=== PATIENT | male | born 1945 | race Caucasian/White ===

== ENCOUNTER → 2016-09-05 | Outpatient (CLI) | payer OTHER ==
[~2016-09-05] MED LIST: ATV/1 PO; LUTE15CA PO; MULT-1027
[2016-09-05 14:38] LABS: BASO % 0.6 %; BASO ABS # 0.04 K/uL (0-0.2); COMPLETE YES; EOS % 3.5 %; HEMATOCRIT 44.1 % (42-52); IG% 0.3 %; LYMPH ABS # 1.28 K/uL (1.2-3.4); MEAN CELL VOLUME 91.7 fL (80-100); MEAN CORPUSCULAR HEMOGLOBIN 31.4 pg (25-34); MEAN CORPUSCULAR HGB CONC 34.2 g/dl (32-36); MEAN PLATELET VOLUME 11.2 fL (7.4-10.4); MONO % 7.7 %; NEUT % 69.9 %; PLATELET COUNT 232 K/uL (130-400); RED BLOOD COUNT 4.81 M/uL (4.7-6.1); WHITE BLOOD COUNT 7.12 K/uL (4.8-10.8)
[2016-09-05 14:39] LABS: ALB/GLOB RATIO 1.2 (0.9-2); ALKALINE PHOSPHATASE 37 U/L (45-117); ALT/SGPT 33 U/L (12-78); AST/SGOT 17 U/L (15-37); BLOOD UREA NITROGEN 20 mg/dl (7-18); BUN/CREATININE RATIO 17.8 (10-20); CALCIUM 8.9 mg/dl (8.5-10.1); CARBON DIOXIDE 32 mmol/L (21-32); CHLORIDE 105 mmol/L (98-107); GLUCOSE 74 mg/dl (70-99); POTASSIUM 4.1 mmol/L (3.5-5.1); SODIUM 142 mmol/L (136-145)
== END | disposition home or self-care (01) ==
LOC: C.LABMFLN 14:42
PROVIDERS: ATTEND Internal Medicine Hematology & Oncology
DX: C34.12 Malignant neoplasm of upper lobe, left bronchus or lung (principal)

== ENCOUNTER → 2016-10-18 | Outpatient (CLI) | payer OTHER ==
[2016-10-17 17:52] LABS: BASO % 0.5 %; BASO ABS # 0.04 K/uL (0-0.2); COMPLETE YES; EOS % 2.2 %; HEMATOCRIT 42.8 % (42-52); IG% 0.3 %; LYMPH % 14.7 %; LYMPH ABS # 1.12 K/uL (1.2-3.4); MEAN CELL VOLUME 91.3 fL (80-100); MEAN CORPUSCULAR HEMOGLOBIN 30.7 pg (25-34); MEAN CORPUSCULAR HGB CONC 33.6 g/dl (32-36); MEAN PLATELET VOLUME 10.8 fL (7.4-10.4); MONO % 6.8 %; NEUT % 75.5 %; PLATELET COUNT 240 K/uL (130-400); RED BLOOD COUNT 4.69 M/uL (4.7-6.1); WHITE BLOOD COUNT 7.64 K/uL (4.8-10.8)
[2016-10-17 19:36] LABS: BLOOD UREA NITROGEN 18 mg/dl (7-18); BUN/CREATININE RATIO 16.2 (10-20); CARBON DIOXIDE 29 mmol/L (21-32); CHLORIDE 104 mmol/L (98-107); GLUCOSE 96 mg/dl (70-99); POTASSIUM 4.1 mmol/L (3.5-5.1); SODIUM 141 mmol/L (136-145)
[2016-10-17 19:45] LABS: ALB/GLOB RATIO 1.1 (0.9-2); ALKALINE PHOSPHATASE 30 U/L (45-117); ALT/SGPT 37 U/L (12-78); AST/SGOT 22 U/L (15-37)
--- NOTE | 2016-10-18 11:57 | DIAGNOSTIC IMAGING REPORT ---
ABDOMEN AND PELVIS CT WITH IV AND ORAL CONTRAST CT DOSE: 477.17 mGy.cm HISTORY: Lung carcinoma LUNG CA TECHNIQUE: Multiaxial CT images of the abdomen and pelvis were performed following the use of intravenous and oral contrast. COMPARISON STUDY: PET/CT 07/04/2016 FINDINGS: Lung bases are clear. Liver is remarkable for a 1.8 cm cyst peripheral right hepatic lobe. Gallbladder is mildly contracted and 1.8 cm hyperdense left renal exophytic cyst. Fullness of the renal collecting systems bilaterally. There is no evidence for ureteral distention. Possibility of moderate UPJ defect on the right and to lesser extent left must be considered. Bowel pattern is nonobstructive. Prostate is enlarged. Bladder is midline. No significant abdominal pelvic or inguinal adenopathy. Sclerotic changes left T12 vertebral body and left sacrum and allison region stable from the prior exam. No evidence for compression deformity. IMPRESSION: 1. Stable limited bony metastatic change. 2. Small left renal hyperdense cyst. 3. Bilateral hydronephrosis combine with peripelvic cysts raising the possibility of developing UPJ defect. 4. Moderate prostatic enlargement Electronically signed by: Matt August M.D. 10/18/2016 11:55 AM Dictated Date/Time: 10/18/2016 11:49 AM
--- NOTE | 2016-10-18 12:34 | DIAGNOSTIC IMAGING REPORT ---
CT OF THE CHEST WITH IV CONTRAST CLINICAL HISTORY: Lung cancer. COMPARISON STUDY: Chest CT June 20, 2016 and PET/CT July 04, 2016. TECHNIQUE: Following IV administration of 90 mL of Optiray-320, helical axial images of the chest were obtained. Images were viewed in the axial, sagittal and coronal planes. IV contrast was administered without complication. FINDINGS: No enlarged axillary, mediastinal or hilar lymph nodes are present. The size the heart is normal. The previously described left upper lobe. A mediastinal mass has significantly decreased in size since prior exam of June 20, 2016. This mass now measures 5 x 1.9 cm. It previously measured 8.6 x 3.9 cm. The previously described 7 mm left lower lobe nodule is no longer visualized indicating a treatment response. A few small subpleural nodules are unchanged. No new nodules are present. The central airways are patent. There has been interval increase in sclerosis of the previously described lesion within the right aspect of the T12 vertebral body with this lesion measures approximately 2.5 cm. No new lesions are identified within visual skeletal structures. The abdomen and pelvis will be reported separately. A 1.7 cm hyperdense lesion arising from the upper pole of the left kidney is unchanged. This is indeterminate. IMPRESSION: 1. Significant interval decrease in size of the left upper lobe paramediastinal mass indicating a partial treatment response. 2. Interval resolution of the 7 mm left lower lobe nodule indicating a treatment response. 3. No thoracic lymphadenopathy. 4. Interval development of sclerosis within the T12 vertebral body metastasis which could reflect a treatment response. 5. No change in the indeterminate 1.7 cm left renal lesion which could reflect a solid renal lesion or hyperdense cyst. Electronically signed by: Dre Little M.D. 10/18/2016 12:32 PM Dictated Date/Time: 10/18/2016 12:18 PM
== END | disposition home or self-care (01) ==
LOC: C.CTS 10:27
PROVIDERS: ATTEND Internal Medicine Hematology & Oncology
DX: C34.12 Malignant neoplasm of upper lobe, left bronchus or lung (principal)

== ENCOUNTER → 2016-11-28 | Outpatient (CLI) | payer OTHER ==
[2016-11-28 17:53] LABS: ALT/SGPT 37 U/L (12-78); AST/SGOT 23 U/L (15-37); BLOOD UREA NITROGEN 19 mg/dl (7-18); BUN/CREATININE RATIO 17.3 (10-20); CARBON DIOXIDE 31 mmol/L (21-32); CHLORIDE 105 mmol/L (98-107); GLUCOSE 103 mg/dl (70-99); POTASSIUM 4.3 mmol/L (3.5-5.1); SODIUM 142 mmol/L (136-145)
[2016-11-28 17:56] LABS: ALB/GLOB RATIO 1.1 (0.9-2); ALKALINE PHOSPHATASE 32 U/L (45-117)
[2016-11-28 18:02] LABS: BASO % 0.4 %; BASO ABS # 0.04 K/uL (0-0.2); COMPLETE YES; EOS % 1.6 %; HEMATOCRIT 43.2 % (42-52); IG% 0.2 %; LYMPH % 14.9 %; MEAN CELL VOLUME 93.5 fL (80-100); MEAN CORPUSCULAR HEMOGLOBIN 31.6 pg (25-34); MEAN CORPUSCULAR HGB CONC 33.8 g/dl (32-36); MEAN PLATELET VOLUME 10.9 fL (7.4-10.4); NEUT % 75.9 %; PLATELET COUNT 237 K/uL (130-400); RED BLOOD COUNT 4.62 M/uL (4.7-6.1); WHITE BLOOD COUNT 9.42 K/uL (4.8-10.8)
== END | disposition home or self-care (01) ==
LOC: C.LABMFLN 12:14
PROVIDERS: ATTEND Internal Medicine Hematology & Oncology
DX: C34.12 Malignant neoplasm of upper lobe, left bronchus or lung (principal)

== ENCOUNTER → 2017-01-10 | Outpatient (CLI) | payer OTHER ==
[2017-01-10 12:49] LABS: BASO % 0.5 %; BASO ABS # 0.04 K/uL (0-0.2); COMPLETE YES; EOS % 3.6 %; HEMATOCRIT 45.4 % (42-52); IG% 0.3 %; LYMPH % 15.7 %; LYMPH ABS # 1.21 K/uL (1.2-3.4); MEAN CORPUSCULAR HEMOGLOBIN 31.9 pg (25-34); MEAN CORPUSCULAR HGB CONC 33.3 g/dl (32-36); MEAN PLATELET VOLUME 11.1 fL (7.4-10.4); MONO % 7.4 %; NEUT % 72.5 %; PLATELET COUNT 235 K/uL (130-400); RED BLOOD COUNT 4.73 M/uL (4.7-6.1); WHITE BLOOD COUNT 7.73 K/uL (4.8-10.8)
[2017-01-10 13:52] LABS: ALT/SGPT 35 U/L (12-78); BLOOD UREA NITROGEN 17 mg/dl (7-18); CALCIUM 9.1 mg/dl (8.5-10.1); CARBON DIOXIDE 29 mmol/L (21-32); CHLORIDE 106 mmol/L (98-107); GLUCOSE 101 mg/dl (70-99); POTASSIUM 4.2 mmol/L (3.5-5.1); SODIUM 142 mmol/L (136-145)
[2017-01-10 13:55] LABS: ALB/GLOB RATIO 1.1 (0.9-2); ALKALINE PHOSPHATASE 30 U/L (45-117); AST/SGOT 25 U/L (15-37)
== END ==
LOC: C.LABMFLN 09:40
PROVIDERS: ATTEND Internal Medicine Hematology & Oncology
DX: C34.12 Malignant neoplasm of upper lobe, left bronchus or lung (principal); E11.9 Type 2 diabetes mellitus without complications; E78.00 Pure hypercholesterolemia, unspecified; I10 Essential (primary) hypertension

== ENCOUNTER → 2017-01-28 | Outpatient (CLI) | payer OTHER ==
[~2017-01-28] MED LIST changes: +OPTIRAY 320 IV PRN
--- NOTE | 2017-01-28 14:20 | DIAGNOSTIC IMAGING REPORT ---
CT OF THE CHEST WITH IV CONTRAST CLINICAL HISTORY: LUNG CA COMPARISON STUDY: 10/18/2016 TECHNIQUE: Following the IV administration of 93 mL of Optiray-320, CT of the thorax was performed from the thoracic inlet to the lung bases. Images are reviewed in the axial, sagittal, and coronal planes. IV contrast was administered without complication. CT DOSE: FINDINGS: Thyroid: Imaged portions of the thyroid gland are normal in appearance. Thoracic aorta: The thoracic aorta is normal in course and caliber, noting standard 3-vessel arch anatomy. No aneurysm or dissection is seen. Pulmonary vasculature: The pulmonary trunk is normal in caliber. There are no central filling defects identified to suggest pulmonary embolus. Note that this examination was not protocoled for the evaluation of pulmonary emboli. HEART: The heart is normal in size and configuration, without pericardial effusion. Lungs and pleural spaces: No pleural effusions are visualized. There is a left upper lobe/mediastinal mass measuring 4.3 x 1.9 cm. This remains essentially unchanged the preceding study. No new or enlarging pulmonary nodules are visualized. There is a stable 4 mm subpleural left lower lobe pulmonary nodule Mediastinum: There is no pathologic mediastinal lymphadenopathy Sherri: There is no pathologic hilar adenopathy Axilla: Clear. Upper abdomen: There is a stable 22 mm right lobe hepatic cyst. There is a stable 19 mm hypodensity arising from the upper pole the left kidney. This exceeds water attenuation and is therefore indeterminate. Skeletal structures: There is an ill-defined area of sclerosis involving the T12 vertebra on the right. This measures approximately 2 cm. IMPRESSION: 1. Stable to slightly smaller left upper lobe paramediastinal mass measuring approximately 43 x 19 mm 2. No new or enlarging pulmonary nodules. 3. No evidence of pathologic adenopathy 4. Stable 2 cm T12 sclerotic lesion 5. Stable 19 mm upper pole left renal lesion Electronically signed by: Sharad Pemberton M.D. 01/28/2017 2:19 PM Dictated Date/Time: 01/28/2017 2:11 PM
--- NOTE | 2017-01-28 14:35 | DIAGNOSTIC IMAGING REPORT ---
CT SCAN OF THE ABDOMEN AND PELVIS WITH IV CONTRAST CLINICAL HISTORY: Lung cancer. COMPARISON STUDY: Abdominal CT dated 10/18/2016. PET CT dated 07/04/2016. TECHNIQUE: Following the IV administration of 93 cc of Optiray 320, CT scan of the abdomen and pelvis is performed from the lung bases to the proximal femora. Images are reviewed in the axial, sagittal, and coronal planes. IV contrast was administered without complication. Automated dose control exposure was utilized. CT DOSE: 454.25 mGy.cm FINDINGS: Lung bases: The heart is normal in size and without pericardial effusion. Emphysema is noted at the lung bases. A fat-containing Bochdalek hernia is present on the right. Scarring is noted at the anterior right lung base. There is no airspace consolidation typical for pneumonia or pleural effusion. Liver: The contrast-enhanced liver is normal in size, contour, and attenuation. There is no intrahepatic biliary ductal dilatation. The hepatic veins and portal veins are patent. A 2.3 cm cyst is noted in the right lobe. Gallbladder: Unremarkable. Spleen: Normal in size and attenuation. Pancreas: Unremarkable. Adrenal glands: Unremarkable. Kidneys: The contrast enhanced kidneys demonstrate mild cortical atrophy. There is mild to moderate bilateral hydroureteronephrosis, similar appearance to 10/18/2016 examination. The kidneys enhance symmetrically. There is an indeterminant 1.9 cm exophytic lesion arising from the upper pole the left kidney as seen on image #84. Subcentimeter cortical hypodensities likely represent cysts but are too small for definitive catheterization. A nonobstructing calculus is seen in the left lower pole. Abdominal vasculature: The abdominal aorta is normal in course and caliber noting advanced atherosclerotic calcification. Bowel: The small bowel and colon are normal in course and caliber. There is moderate colonic diverticulosis without CT evidence of acute diverticulitis. Moderate colonic fecal retention is observed. The appendix is well-visualized and normal. Peritoneum: There is no intraperitoneal free air or abdominal ascites. Lymphadenopathy: None. Pelvic viscera: The prostate gland is markedly enlarged and heterogeneous measuring over 5.5 cm in transverse diameter. There is median lobe hypertrophy. The bladder wall is thickened and trabeculated suggesting the sequelae of chronic outlet obstruction. Skeletal structures: The skeletal structures are osteopenic. Sclerotic lesions in the bodies of T12, L3, L5, and the left sacral ala are similar to previous. There are healed bilateral rib fractures. IMPRESSION: 1. There is no evidence of progressive metastatic disease in the abdomen or pelvis. 2. Sclerotic osseous metastatic lesions as above are similar to prior studies. 3. The prostate gland is markedly enlarged and heterogeneous and there is evidence of chronic bladder outlet obstruction. Correlation with serum PSA levels is recommended. 4. Mild to moderate bilateral hydroureteronephrosis is similar to previous, possibly related to the markedly enlarged prostate gland. 5. Nonobstructing left calculus. 6. There is an indeterminant 1.9 cm exophytic lesion arising from the upper pole of the left kidney. This is similar to prior studies, was not FDG avid on the 07/04/2016 PET examination, and likely represents a complex cyst. 7. Emphysema. 8. Moderate colonic diverticulosis without CT evidence of acute diverticulitis. 9. Additional findings as above. Electronically signed by: Jose Martines M.D. 01/28/2017 2:34 PM Dictated Date/Time: 01/28/2017 2:21 PM
== END | disposition home or self-care (01) ==
LOC: C.CTS 13:13
PROVIDERS: ATTEND Internal Medicine Hematology & Oncology
DX: C34.12 Malignant neoplasm of upper lobe, left bronchus or lung (principal)

== ENCOUNTER → 2017-02-13 | Outpatient (CLI) | payer OTHER ==
[~2017-02-13] MED LIST changes: -OPTIRAY 320 IV PRN
[2017-02-13 13:44] LABS: % FREE PSA 12.8 %; FREE PSA 0.76 ng/ml; PROSTATE SPECIFIC ANTIGEN 5.96 ng/ml (0.000-4.000)
== END | disposition home or self-care (01) ==
LOC: C.LABMFLN 08:07
PROVIDERS: ATTEND Family Medicine
DX: R97.20 Elevated prostate specific antigen [PSA] (principal)

== ENCOUNTER → 2017-04-19 | Outpatient (CLI) | payer OTHER ==
[~2017-04-19] MED LIST changes: +OPTIRAY 320 IV PRN
--- NOTE | 2017-04-19 16:19 | DIAGNOSTIC IMAGING REPORT ---
ABD/PELVIS IV AND ORAL CONT CLINICAL HISTORY: 72 years-old Male presenting with LUNG CA. TECHNIQUE: Multidetector CT of the abdomen and pelvis was performed after the administration of oral and intravenous contrast. IV contrast: 118 mL of Optiray 320. A dose lowering technique was used consistent with the principles of ALARA (as low as reasonably achievable). COMPARISON: 01/28/2017. CT DOSE (mGy.cm): The estimated cumulative dose is 464.21. FINDINGS: Assistant Project Engineer topogram: Unremarkable. Lung bases: Normal reticulation in the right middle lobe. Normal heart size. No pericardial or pleural effusion. Fat-containing right Bochdalek hernia noted. Liver: Normal morphology. Well-defined nonenhancing hypodense lesions again noted in the gallbladder fossa and right hepatic lobe consistent with hepatic cysts or hamartomas. No suspicious lesion. Agent hepatic vasculature. Biliary: No intrahepatic or extrahepatic biliary ductal dilatation. Normal gallbladder. Pancreas: Mild prominence of the pancreatic duct without evidence of a suspicious mass. A duodenal diverticula may be present in the pancreatic head region. Additionally, small subcentimeter cystic lesion in the pancreatic head may be present, unchanged from prior exam, possibly small knee cyst cyst or side duct intravascular mucinous neoplasm. Spleen: Normal. Adrenal glands: Normal. Kidneys and ureters: Multiple hypodensities in the kidneys bilaterally, likely simple cysts. Nonobstructing 3 mm calculus at the lower pole of the left kidney. Mild bilateral pelvocaliectasis unchanged from prior exam. The ureters are nondilated beyond the ureteropelvic junctions. Bladder: Moderate diffuse bladder wall thickening, increased from prior. Pelvic organs: Prostate enlargement likely secondary to benign prostatic hyperplasia. Bowel: Limited sigmoid diverticulosis. Normal appendix. No bowel obstruction. Small duodenal diverticulum along the descending portion suspected. Peritoneal cavity: No free fluid or intraperitoneal gas. Vasculature: Atherosclerosis of the normal caliber abdominal aorta. IVC patent. Lymph nodes: No enlarged lymph nodes in the abdomen or pelvis. Abdominal wall: Normal. Musculoskeletal: Degenerative changes of the spine. Degenerative changes of the sacroiliac joints. Radiolucent lesion in the T12 vertebral body was previously sclerotic (series 6 image 73), now measuring 1.6 cm. Additional mixed sclerotic lytic lesions in the lumbar vertebra at L3, L5 and in the left sacral ala better appreciated on PET/CT from 07/04/2016. IMPRESSION: 1. Remaining demonstration of osseous metastatic lesions with interval evolution of the T12 lesion, which is now well-defined and radiolucent. This is indeterminate for progression. 2. Otherwise no evidence of progression of metastatic disease in the abdomen or pelvis. 3. Increase in bladder wall thickening likely indicating chronic outlet obstruction secondary to prostatomegaly. Electronically signed by: Jeremy Orourke M.D. 04/19/2017 4:18 PM Dictated Date/Time: 04/19/2017 4:08 PM
--- NOTE | 2017-04-19 16:22 | DIAGNOSTIC IMAGING REPORT ---
CHEST CT WITH CONTRAST CT DOSE: 464.21 mGy.cm HISTORY: LUNG CA follow-up study. TECHNIQUE: Multiaxial CT images of the chest were performed following the intravenous administration of 118 mL Optiray 320 intravenous contrast. A dose lowering technique was utilized adhering to the principles of ALARA. COMPARISON: Chest CT 01/28/2017. FINDINGS: There is no focal thyroid nodule. No pathologic adenopathy throughout the chest identified. Heart is normal in size without pericardial effusion. Coronary arterial calcifications are noted. There is moderate atherosclerotic plaquing of the thoracic aorta. No evidence of pulmonary thromboembolic disease. The previously noted left upper lobe peroneal mediastinal mass abutting the left mediastinal margin, 4.0 x 1.3 x 3.6 cm, previously 4.3 x 1.6 x 3.7 cm. There is loss of the mediastinal fat plane along the superior margin of this mass which appears unchanged. Mild spiculated margins are redemonstrated. There is mild to moderate narrowing of the left main mid pulmonary artery just inferior to the spiculated mass, likely secondary to scarring/retraction. This also is unchanged. There is no pneumothorax or pleural effusion. No new suspicious pulmonary nodules or masses are identified. 4 mm pleural-based nodule of the lateral basal segment left lower lobe is incidentally noted on image 184. Linear pleural-based subsegmental opacities of the lung bases suggest scarring or atelectasis. The central airways are patent. There are a few low attenuating lesions in the liver seen, largest of which is within the right hepatic lobe, 2.2 x 2.0 cm, unchanged and nonspecific suggesting hepatic cyst. Exophytic cyst of the superior pole left kidney is seen, 2.4 cm. Soft tissues are unremarkable. Calcific tendinosis involves the right shoulder. Lucent lesion of the T12 vertebral body is seen, 1.6 x 1.3 x 1.2 cm previously, this was a focal area of sclerosis on study dated 01/28/2017. No associated pathologic fracture. No additional suspicious lytic or blastic bony lesions identified. IMPRESSION: 1. Slightly decreased size of the spiculated pleural-based mass of the left upper lobe abutting the left mediastinal margin, now measuring up to 4.0 cm. 2. 4 mm indeterminate noncalcified pleural-based nodule of the left lower lobe is incidentally noted, unchanged from comparison. No new additional masses or suspicious pulmonary nodules are identified. 3. No pathologic adenopathy. 4. Developing lucency involves the previously noted sclerotic lesion of the T12 vertebral body. No associated pathologic fracture or new suspicious bony lesions identified. Electronically signed by: Meño Pepe M.D. 04/19/2017 4:20 PM Dictated Date/Time: 04/19/2017 4:08 PM
== END | disposition home or self-care (01) ==
LOC: C.CTS 13:26
PROVIDERS: ATTEND Internal Medicine Hematology & Oncology
DX: C34.12 Malignant neoplasm of upper lobe, left bronchus or lung (principal); N40.1 Benign prostatic hyperplasia with lower urinary tract symptoms; N32.89 Other specified disorders of bladder

== ENCOUNTER → 2017-04-19 | Outpatient (CLI) | payer OTHER ==
[~2017-04-19] MED LIST changes: -OPTIRAY 320 IV PRN
[2017-04-19 14:06] LABS: ALT/SGPT 37 U/L (12-78); BLOOD UREA NITROGEN 18 mg/dl (7-18); BUN/CREATININE RATIO 17.8 (10-20); CALCIUM 9.5 mg/dl (8.5-10.1); CARBON DIOXIDE 30 mmol/L (21-32); CHLORIDE 104 mmol/L (98-107); GLUCOSE 84 mg/dl (70-99); POTASSIUM 4.1 mmol/L (3.5-5.1); SODIUM 140 mmol/L (136-145)
[2017-04-19 14:09] LABS: ALKALINE PHOSPHATASE 37 U/L (45-117); AST/SGOT 24 U/L (15-37)
[2017-04-19 14:25] LABS: BASO % 0.6 %; BASO ABS # 0.05 K/uL (0-0.2); COMPLETE YES; EOS % 2.3 %; HEMATOCRIT 47.8 % (42-52); IG% 0.4 %; LYMPH % 14.6 %; LYMPH ABS # 1.21 K/uL (1.2-3.4); MEAN CELL VOLUME 95.4 fL (80-100); MEAN CORPUSCULAR HEMOGLOBIN 32.5 pg (25-34); MEAN CORPUSCULAR HGB CONC 34.1 g/dl (32-36); MEAN PLATELET VOLUME 11.2 fL (7.4-10.4); MONO % 8.8 %; NEUT % 73.3 %; PLATELET COUNT 246 K/uL (130-400); RED BLOOD COUNT 5.01 M/uL (4.7-6.1)
== END | disposition home or self-care (01) ==
LOC: C.LABMFLN 11:59
PROVIDERS: ATTEND Internal Medicine Hematology & Oncology
DX: C34.12 Malignant neoplasm of upper lobe, left bronchus or lung (principal)

== ENCOUNTER → 2017-07-10 | Outpatient (CLI) | payer OTHER ==
[~2017-07-10] MED LIST changes: +OPTIRAY 320 IV PRN
[2017-07-10 14:10] LABS: ISTAT HEMOGLOBIN 15.6 g/dl (14.0-18.0); ISTAT IONIZED CALCIUM 1.12 mmol/l (1.12-1.32)
--- NOTE | 2017-07-10 14:21 | DIAGNOSTIC IMAGING REPORT ---
ABDOMEN AND PELVIS CT WITH IV AND ORAL CONTRAST CT DOSE: HISTORY: PRIMARY MALIGNANT NEOPLASM OF LEFT UPPER LOBE OF LUNG TECHNIQUE: Multiaxial CT images of the abdomen and pelvis were performed following the use of intravenous and oral contrast. A dose lowering technique was utilized adhering to the principles of ALARA. COMPARISON STUDY: Abdomen and pelvis CT 04/19/2017. FINDINGS: Increase in size within the predominantly lytic lesion within the T12 vertebral body which measures 2.5 x 2.1 cm. This demonstrates breakthrough along the posterior cortex of the vertebral body. No definite epidural soft tissue mass identified at this time. Additional sclerotic lesions at L3, and L5 remain unchanged. No change in the predominantly lytic lesion within the left sacral wing. No new osseous lesions identified. Prostatomegaly and mild bladder wall thickening remains unchanged. Colonic diverticulosis. Normal appendix. No bowel wall thickening or obstruction. No retroperitoneal lymphadenopathy. The spleen and adrenal glands are unremarkable. Stable tiny hypodense lesions within the pancreatic head which are likely cystic. Normal gallbladder. Stable hepatic cysts. Stable bilateral renal hypodense lesions which also likely represent cysts. Stable punctate calcification within the lower pole the left kidney. Stable mild fullness within the bilateral renal collecting systems without faiza hydronephrosis. IMPRESSION: 1. Increase in size in the predominantly lytic lesion within the T12 vertebral body which now demonstrates cortical breakthrough through the posterior cortex of the vertebral body. No definite epidural soft tissue mass identified this time. 2. Additional mixed lytic and sclerotic lesions within the lumbar spine and sacrum remain unchanged. 3. No new areas of metastatic disease identified. Electronically signed by: Davonte Troy M.D. 07/10/2017 2:20 PM Dictated Date/Time: 07/10/2017 2:11 PM
--- NOTE | 2017-07-10 14:24 | DIAGNOSTIC IMAGING REPORT ---
(CHEST) THORAX WITH CLINICAL HISTORY: 72 years-old Male presenting with PRIMARY MALIGNANT NEOPLASM OF LEFT UPPER LOBE OF LUNG. TECHNIQUE: Multidetector CT imaging of the chest was performed after the administration of intravenous contrast. IV contrast: 93 mL of Optiray 320. A dose lowering technique was used consistent with the principles of ALARA (as low as reasonably achievable). COMPARISON: 04/19/2017. CT DOSE (mGy.cm): The estimated cumulative dose is 550.21 mGycm. FINDINGS: Infusion Nurse topogram: Unremarkable. On soft tissue windows, normal thyroid and thoracic inlet. No axillary, supraclavicular, hilar, or mediastinal lymphadenopathy. Atherosclerosis of the aorta. Aortic valve and coronary artery calcification. Normal heart size. No pericardial or pleural effusion. Well-defined hypodensity in the right hepatic lobe, partially visualized. Please see separately dictated CT of the abdomen and pelvis for further details. Exophytic cyst arising from the left kidney. On lung windows, no significant change in the spiculated pleural-based mass in the medial aspect of the left upper lobe, which now measures 4.2 x 1.4 cm, previously 4.1 x 1.2 cm when remeasured at a comparable level. Minimal associated nodularity in the mediastinal fat the level of the aortopulmonary window is unchanged from prior (series 4 image 109). Stable subpleural solid 4 mm nodule in the left lower lobe (series 4 image 179). Additional punctate subpleural nodule in the left lower lobe (series 4 image 147), unchanged. Subpleural solid 6 mm nodule in the posterior basal right lower lobe (series 4 image 182), unchanged. No new pulmonary nodule. Minimal dependent opacities likely atelectasis. Airways patent. On bone windows, degenerative changes of the spine. Lucent lesion in the T12 vertebral body has progressed since the prior exam (series 4 image 265). Irregularity of the lateral left ribs suggest old nondisplaced rib fractures. No new destructive osseous lesion is apparent. IMPRESSION: 1. Stable appearance of the spiculated pleural-based mass in the left upper lobe. 2. Stable bilateral pulmonary nodules. No new nodule. 3. No lymphadenopathy. 4. Apparent progression of the lucent lesion in the T12 vertebral body. This is indeterminate but raises concern for site of osseous metastasis. Electronically signed by: Jeremy Orourke M.D. 07/10/2017 2:23 PM Dictated Date/Time: 07/10/2017 2:13 PM
== END | disposition home or self-care (01) ==
LOC: C.CTS 12:14
PROVIDERS: ATTEND Internal Medicine Hematology & Oncology
DX: C34.12 Malignant neoplasm of upper lobe, left bronchus or lung (principal); R91.8 Other nonspecific abnormal finding of lung field

== ENCOUNTER → 2017-07-10 | Outpatient (CLI) | payer OTHER ==
[~2017-07-10] MED LIST changes: -OPTIRAY 320 IV PRN
[2017-07-10 12:40] LABS: BASO % 0.5 %; BASO ABS # 0.05 K/uL (0-0.2); COMPLETE YES; EOS % 2.1 %; HEMATOCRIT 45.1 % (42-52); IG% 0.2 %; LYMPH % 13.4 %; LYMPH ABS # 1.23 K/uL (1.2-3.4); MEAN CELL VOLUME 96.6 fL (80-100); MEAN CORPUSCULAR HEMOGLOBIN 32.5 pg (25-34); MEAN CORPUSCULAR HGB CONC 33.7 g/dl (32-36); MEAN PLATELET VOLUME 11.1 fL (7.4-10.4); MONO % 8.4 %; NEUT % 75.4 %; PLATELET COUNT 217 K/uL (130-400); RED BLOOD COUNT 4.67 M/uL (4.7-6.1); WHITE BLOOD COUNT 9.16 K/uL (4.8-10.8)
[2017-07-10 18:31] LABS: ALT/SGPT 32 U/L (12-78); BLOOD UREA NITROGEN 16 mg/dl (7-18); BUN/CREATININE RATIO 15.3 (10-20); CALCIUM 9.1 mg/dl (8.5-10.1); CARBON DIOXIDE 29 mmol/L (21-32); CHLORIDE 105 mmol/L (98-107); CREATININE 1.03 mg/dl (0.60-1.40); GLUCOSE 80 mg/dl (70-99); SODIUM 141 mmol/L (136-145)
[2017-07-10 18:34] LABS: ALB/GLOB RATIO 1.1 (0.9-2); ALKALINE PHOSPHATASE 41 U/L (45-117); AST/SGOT 23 U/L (15-37)
== END | disposition home or self-care (01) ==
LOC: C.LABMFLN 10:57
PROVIDERS: ATTEND Internal Medicine Hematology & Oncology
DX: C34.12 Malignant neoplasm of upper lobe, left bronchus or lung (principal)

== ENCOUNTER → 2017-10-22 | Outpatient (CLI) | payer OTHER ==
[2017-10-22 12:43] LABS: BASO % 0.6 %; BASO ABS # 0.05 K/uL (0-0.2); EOS % 2.6 %; EOS ABS # 0.22 K/uL (0-0.5); HEMATOCRIT 46.2 % (42-52); HEMOGLOBIN 16.1 g/dL (14.0-18.0); IG# 0.02 K/uL (0.00-0.02); LYMPH % 14.9 %; LYMPH ABS # 1.24 K/uL (1.2-3.4); MEAN CELL VOLUME 94.9 fL (80-100); MEAN CORPUSCULAR HEMOGLOBIN 33.1 pg (25-34); MEAN CORPUSCULAR HGB CONC 34.8 g/dl (32-36); MONO % 7.8 %; MONO ABS # 0.65 K/uL (0.11-0.59); NEUT % 73.9 %; NEUT ABS # 6.15 K/uL (1.4-6.5); PLATELET COUNT 219 K/uL (130-400); RED CELL DISTRIBUTION WIDTH CV 13.1 % (11.5-14.5); RED CELL DISTRIBUTION WIDTH SD 45.2 fL (36.4-46.3); WHITE BLOOD COUNT 8.33 K/uL (4.8-10.8)
[2017-10-22 13:27] LABS: ALBUMIN 4.1 gm/dl (3.4-5.0); ALKALINE PHOSPHATASE 43 U/L (45-117); ALT/SGPT 42 U/L (12-78); AST/SGOT 25 U/L (15-37); BLOOD UREA NITROGEN 19 mg/dl (7-18); CALCIUM 9.2 mg/dl (8.5-10.1); CARBON DIOXIDE 29 mmol/L (21-32); CREATININE 1.27 mg/dl (0.60-1.40); GLUCOSE 79 mg/dl (70-99); POTASSIUM 3.9 mmol/L (3.5-5.1); SODIUM 139 mmol/L (136-145); TOTAL PROTEIN 7.9 gm/dl (6.4-8.2)
== END | disposition home or self-care (01) ==
LOC: C.LABMFLN 10:41
PROVIDERS: ATTEND Internal Medicine Hematology & Oncology
DX: C34.12 Malignant neoplasm of upper lobe, left bronchus or lung (principal); R97.20 Elevated prostate specific antigen [PSA]

== ENCOUNTER → 2017-10-22 | Outpatient (CLI) | payer OTHER ==
[~2017-10-22] MED LIST changes: +OPTIRAY 320 IV PRN
--- NOTE | 2017-10-22 14:32 | DIAGNOSTIC IMAGING REPORT ---
(CHEST) THORAX WITH CLINICAL HISTORY: 72 years-old Male presenting with C34.21 lung cancer, 3 month follow-up. TECHNIQUE: Multidetector CT imaging of the chest was performed after the administration of intravenous contrast. IV contrast: 94 mL of Optiray 320. A dose lowering technique was used consistent with the principles of ALARA (as low as reasonably achievable). COMPARISON: 07/10/2017. CT DOSE (mGy.cm): The estimated cumulative dose is 502.15 mGycm. FINDINGS: Crab Fisherman topogram: Unremarkable. On soft tissue windows, normal thyroid and thoracic inlet. Few subcentimeter lymph nodes in the aortopulmonary window and bilateral hilar regions. Atherosclerosis of the aorta. Coronary artery and aortic valve calcification. Normal heart size. Gas in the main pulmonary artery likely from injection. No pericardial or pleural effusion. Well-defined hypodensity in the liver, indeterminate but likely hepatic cyst and unchanged. On lung windows, redemonstration of the pleural-based spiculated mass in the left upper lobe, which abuts the left aspect of the anterior mediastinum in the region of the aortic arch and aortopulmonary window. The mass is somewhat difficult to measure given its plaque-like and infiltrative growth pattern, however in comparing to prior, the mass measures approximately 4.6 x 1.8 cm, previously 4.2 x 1.4 cm. There is significant interval growth of a lobular extension of the mass along the inferior lateral aspect abutting the major fissure in the posterior left upper lobe (series 4 image 97). This portion of the mass measures 2.1 cm, previously 0.6 cm. The subsegmental bronchi remain occluded as they course through the mass. Nodularity in the aortopulmonary window is favored to represent lymph nodes, however, direct extension into the mediastinum is difficult to exclude. Calcified granuloma noted in the right middle lobe. Architectural distortion and bandlike opacity in the right middle lobe consistent with chronic scarring. Minimal dependent changes likely atelectasis. Unchanged pleural-based triangular solid 6 mm nodule in the posterior basal right lower lobe (series 4 image 171). Subpleural solid 4 mm nodule in the lateral basal left lower lobe (series 4 image 178), unchanged. No new nodule. On bone windows, degenerative changes of the spine. IMPRESSION: 1. Slight interval increase in size of the pleural-based spiculated mass in the left upper lobe. Persistent subcentimeter though suspicious nodularity in the aortopulmonary window, which could represent mediastinal lymphadenopathy or direct extension of the mass into the mediastinum. 2. Subcentimeter bilateral hilar and prevascular/aortopulmonary window lymph nodes are equivocal. 3. Additional solid pulmonary nodules measuring up to 6 mm, unchanged. No new nodule. Electronically signed by: Jeremy Orourke M.D. 10/22/2017 2:31 PM Dictated Date/Time: 10/22/2017 2:21 PM
--- NOTE | 2017-10-22 14:35 | DIAGNOSTIC IMAGING REPORT ---
ABDOMEN AND PELVIS CT WITH IV AND ORAL CONTRAST HISTORY: Months follow-up exam in a patient with history of lung cancer. 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 LUNG CA TECHNIQUE: Multiaxial CT images of the abdomen and pelvis were performed following the use of intravenous and oral contrast. A dose lowering technique was utilized adhering to the principles of ALARA. COMPARISON STUDY: CT abdomen and pelvis 07/10/2017, CT chest of same day FINDINGS: Mild pleural parenchymal scarring/atelectasis of the anterolateral right lung base. 4 mm pleural-based nodule of the lateral basal segment left lower lobe as seen on image 5 of series 6, unchanged. There is no pneumatosis or pneumoperitoneum. Imaged inferior cardiac chambers are unremarkable. Low attenuating lesions of the liver measuring up to 2.4 cm suggests hepatic cysts. The spleen, gallbladder and adrenal glands are within normal limits. Stable tiny hypodense lesions within the pancreatic head are again seen measuring up to 6 mm suggesting possible sidebranch IPMN's. Mild fullness of the bilateral renal outline noted with mild nonspecific bilateral perinephric stranding. Unchanged low attenuating lesions of the kidneys suggests renal cysts. No renal calculi or hydronephrosis. Prostamegaly causes mass effect upon the floor of the urinary bladder. Wall thickening of the bladder suggests chronic bladder outlet obstruction. Moderate to extensive mixed plaquing of the thoracic aorta without aneurysm. No bulky adenopathy. There is no bowel obstruction or focal bowel wall thickening identified. Mild nonspecific rectal wall thickening. Moderate colonic diverticulosis without CT evidence of acute diverticulitis. Soft tissues are unremarkable. Heterogeneous predominantly lytic lesion involving the T12 vertebral body has increased in size from comparison study, now measuring approximately 2.8 x 2.8 cm, previously 2.3 x 2.4 cm on study dated 07/10/2017. Again noted is cortical breakthrough along the posterior margin of this lesion without large epidural component or high-grade central canal narrowing identified. Lytic lesion of the left sacral wing redemonstrated which appears unchanged. Sclerotic lesions at L3 and L5 redemonstrated. No new metastatic bone lesions are definitively seen. IMPRESSION: 1. Interval increase in size of the lytic destructive appearing bone lesion of the T12 vertebral body, increased in size from comparison study dated 07/10/2017. Cortical destruction along the posterior margin of this lesion adjacent to the central canal is redemonstrated without large epidural soft tissue component or severe central canal narrowing identified at this time. 2. Unchanged size and appearance of the mixed lytic and blastic lesions within the lumbar spine and sacrum. 3. No new evidence of metastatic disease identified. Electronically signed by: Meño Pepe M.D. 10/22/2017 2:34 PM Dictated Date/Time: 10/22/2017 2:21 PM
== END | disposition home or self-care (01) ==
LOC: C.CTS 11:47
PROVIDERS: ATTEND Internal Medicine Hematology & Oncology
DX: C34.12 Malignant neoplasm of upper lobe, left bronchus or lung (principal)